=== PATIENT | male | born 1965 | race African-American/Black ===

== ENCOUNTER 2019-03-08 02:49 | Inpatient (IN) | payer OTHER ==
[2019-03-08] VITALS (12 sets, daily range): BP systolic 135–185; BP diastolic 92–109
[~2019-03-08] VITALS: Ht 185.4 cm; Wt 127.0 kg
[2019-03-08] MEDS ORDERED: HYDRAZINE SULFAT1 GM PO (02:59)
[2019-03-08] MEDS ORDERED: HYDROCHLOROTH12.5 M1 PO (02:59)
[2019-03-08] MEDS ORDERED: CARVEDILOL12.5 MG PO (02:59)
[2019-03-08] MEDS ORDERED: ASPIR 8181 MG PO (03:00)
[2019-03-08] MEDS ORDERED: LIPITOR 20 MG T20 M1 PO (03:00)
[2019-03-08] MEDS ORDERED: AMLODIPINE BESY10 MG PO (03:00)
[2019-03-08 03:07] LABS: ABSOLUTE NEUTROPHILS 4.1 thou/uL (1.4-8.2); BASOPHILS 0.9 % (0.0-2.0); HEMATOCRIT 44.7 % (42.0-52.0); MCH 27.4 pg (26.0-34.0); MCHC 33.5 g/dL (28.0-37.0); MCV 81.8 fL (80.0-100.0); MONOCYTES 5.5 % (1.0-8.0); PLATELET COUNT 214 thou/uL (150-400); POLYS 42.6 % (36.0-66.0); RBC 5.47 mil/uL (4.50-6.00); RDW 15.1 % (10.5-14.5); WBC 9.6 thou/uL (4.0-11.0)
[2019-03-08 03:14] LABS: CALCIUM 9.2 mg/dL (8.5-10.1); CREATININE 1.5 mg/dL (0.7-1.3); POTASSIUM 3.3 mmol/L (3.5-5.1)
[2019-03-08 03:23] LABS: ALBUMIN 3.9 g/dL (3.4-5.0); TOTAL BILIRUBIN 0.6 mg/dL (<0.1-1.0); TOTAL PROTEIN 7.5 g/dL (6.4-8.2)
[2019-03-08 03:43] LABS: TROPONIN-I 0.83 ng/mL (<0.06)
[2019-03-08 05:33] LABS: CHOLESTEROL 169 mg/dL (<200); HDL CHOLESTEROL 34 mg/dL (>40); LDL CHOLESTEROL 58 mg/dL (<100); TRIGLYCERIDE 388 mg/dL (<150); VLDL 78 mg/dL (<40)
[2019-03-08 05:39] LABS: SERUM ASSESSMENT Slight Lipemia
--- NOTE | 2019-03-08 09:12 | EKG ---
[place] [address] [facility] [place] [address] ELECTROCARDIOGRAM REPORT Name: JUANIS METZGER Room #: 207-P ADM IN M.R.#: [id number] ������������������ Admission: 03/08/19 ������������������ Attend Phys: Leonides Dumont MD Discharge: ������������������ Date of : 63 Report #: [id number] ����������������������������������������������������������������� [id number] THIS REPORT FOR: //name// [facility] ED Test Date: 2019-03-08 Test Time: 03:00:01 Pat Name: JUANIS METZGER Department: Room: 207 Gender: M Dental Resident: CANDIS : 1965 Requested By: Rosalba Chakraborty Order Number: [id number] MD: Jason Dewey Measurements Intervals [place] Rate: 71 P: 19 TX: 154 QRS: -67 QRSD: 100 T: QT: 386 QTc: 420 Interpretive Statements Sinus rhythm Left anterior fascicular block Nonspecific T abnormalities, lateral leads No previous ECG available for comparison Electronically Signed On 03-08-2019 9:12:29 CDT by Jason Dewey [email or web address] ��������������������������������������������� <ELECTRONICALLY SIGNED> ���������������������������������������� By: Jason Dewey MD, [facility] ��������������������������������������������� 03/08/1912 9 9 Jason Dewey MD, FAC /EPI
--- NOTE | 2019-03-08 16:58 | CATHLAB ---
[facility] [address] [place] [address] INVASIVE PROCEDURE REPORT Name: JUANIS METZGER Room #: 207-P ADM IN ..#: [id number] ������������� Admission: 03/08/19 ������������� Attend Phys: Leonides Dumont MD Discharge: ��� ������������� ��� Date of : 63 Date of Service: 03/08/19 1658 �� Report #: [id number] �������� ��������������������������������������������[id number] THIS REPORT FOR: //name// APPROVED REPORT Study performed: 03/08/2019 11:05:11 Patient Details Patient Status: In-Patient Room #: 207 The patient is a 53 year-old male Event Personnel Gianni Almaraz Visual Stylist, Temo Mcfarlane RN, Carin Mason RTR, ESCROW CLOSER Monitor, Jenniffer SCHAEFFER ESCROW CLOSER Scrub Procedures Performed Art Access - R femoral artery* Left Heart Cath w/or w/o Coronaries 7623856 [facility] [address] Initial Mod Sed Same Phys/QHP Gr5y 953158 Renal Bilateral Peripheral Angiography [id number] CVRENALBIL Hemostasis w/ Mynx Indication Chest pain Procedure Narrative The Right Groin^ was infiltrated with 1% Lidocaine subcutaneous anesthesia. A PINNACLE 6FR Sheath #[id number] sheath was inserted into the RFA^. Coronary angiography was performed using coronary diagnostic catheters. The right coronary system was accessed and visualized with a JR4 catheter. The left coronary system was accessed and visualized with a JL4 catheter. The left ventricle was accessed and visualized with a Pigtail catheter. Left ventriculogram was performed in 30 degree projection. Pre-demployment femoral angiogram was performed . Closure device was deployed with a 6 Fr MYNXGRIP 6/7F #[id number]. There was no hematoma. Intraoperative Conscious Sedation Sedation start time: 12:02 Case end Time: 12:33 Fentanyl 50 mcg Versed 2 mg Fluoro Time: 1.43 minutes Dose: DAP 6580.40 cGycm2 784 mGy Contrast Type and Amount: Visipaque 75 ml [facility] [address] [place] [address] INVASIVE PROCEDURE REPORT Name: JUANIS METZGER Room #: 207-P [facility] IN [facility]#: [id number] ������������� Admission: 03/08/19 ������������� Attend Phys: Leonides Dumont MD Discharge: ��� ������������� ��� Date of : 63 Date of Service: 03/08/19 1658 �� Report #: [id number] �������� ��������������������������������������������[id number] Hemodynamics The aortic pressure is 159/95 mmHg with a mean of 120 mmHg. The left ventricular pressure is 170/10 mmHg with a mean of mmHg. The left ventricular end diastolic pressure is 25 mmHg. Conclusion #1 normal left ventricular size and systolic function EF 55-60% no wall motion abnormality #2 essentially normal coronary anatomy anatomically dominant right codominant larger circumflex smaller right coronary artery no significant occlusive disease is noted LAD extends around the apex. Left main is large and mildly ectatic #3 selective bilateral renal angiography revealing no occlusive renal artery stenosis. Condition plan: Continue aggressive risk factor modification. There is no indication for coronary intervention. We'll have follow-up with echo Doppler for blood pressure for assessing LVH have instituted ARB therapy Mild renal insufficiency will also follow and repeat creatinine at his follow-up in 2-3 weeks. ��������������������������������������������� <ELECTRONICALLY SIGNED> ���������������������������������������� By: Gianni Almaraz MD, [facility] ��������������������������������������������� 03/08/19 1658 57 57 Gianni Almaraz MD, FACC /INF
--- NOTE | 2019-03-08 17:20 | NUR ---
ASSUMED CARE AT 0815 AM, ALERT AND ORIENTED, DENIES ANY CP, BP REMAINS HIGH ON ADMISSION. PATIENT TAKEN CHIEF MARKETING OFFICER, RT GRION DCI, OFF BED REST. POST CARDIAC CATH VS SEE FOLLOW SHEET. DISCHARGE AND MEDICATION INSTRUCTION GIVEN TO PT ANF FAMILY AND PATEINT DISCHARGED HOME.
--- NOTE | 2019-03-09 08:05 | EKG ---
[address] [address] ELECTROCARDIOGRAM REPORT Name: JUANIS METZGER Room #: 207-[facility] IN M.R.#: [id number] ������������������ Admission: 03/08/19 ������������������ Attend Phys: Leonides Dumont MD Discharge: 03/08/19 ������������������ Date of : 63 Report #: [id number] ����������������������������������������������������������������� [id number] THIS REPORT FOR: //name// [facility] Test Date: 2019-03-08 Test Time: 09:24:26 Pat Name: JUANIS METZGER Department: Room: [facility] Gender: M Industrial Radiographer: Teddy HUTCHINSON : 1965 Requested By: Tanvi Campbell Order Number: [id number] MD: Jason Dewey Measurements Intervals [place] Rate: 62 P: 36 AR: 149 QRS: -66 QRSD: 103 T: 211 QT: 398 QTc: 405 Interpretive Statements Sinus rhythm Left anterior fascicular block Nonspecific T abnormalities, diffuse leads Compared to ECG 03/08/2019 03:00:01 no significant change was found Electronically Signed On 03-09-2019 8:05:36 CDT by Jason Dewey [email or web address] ��������������������������������������������� <ELECTRONICALLY SIGNED> ���������������������������������������� By: Jason Dewey MD, [facility] ��������������������������������������������� 03/09/19 0805 Jason Dewey MD, [facility] /EPI
--- NOTE | 2019-03-09 08:35 | NUR ---
PATIENT DC PRIOR TO SEEN.
== END 2019-03-08 17:20 | disposition home or self-care (01) | DRG 281 ==
LOC: ER 02:49 → EROBS 04:26 → 2N 04:26
PROVIDERS: Emergency Medicine; Nurse Practitioner Family; ADMIT Hospitalist
PROC: B418YZZ Fluoroscopy of Bilateral Renal Arteries using Other Contrast (ICD-10-PCS; principal; 2019-03-08)
PROC: B215YZZ Fluoroscopy of Left Heart using Other Contrast (ICD-10-PCS; principal; 2019-03-08)
PROC: B211YZZ Fluoroscopy of Multiple Coronary Arteries using Other Contrast (ICD-10-PCS; principal; 2019-03-08)
PROC: 4A023N7 Measurement of Cardiac Sampling and Pressure, Left Heart, Percutaneous Approach (ICD-10-PCS; principal; 2019-03-08)
PROC: B41JYZZ Fluoroscopy of Other Lower Arteries using Other Contrast (ICD-10-PCS; principal; 2019-03-08)
DX: I21.4 Non-ST elevation (NSTEMI) myocardial infarction (principal); N17.9 Acute kidney failure, unspecified; E78.5 Hyperlipidemia, unspecified; F12.90 Cannabis use, unspecified, uncomplicated; I16.0 Hypertensive urgency; E11.22 Type 2 diabetes mellitus with diabetic chronic kidney disease; E78.1 Pure hyperglyceridemia; I12.9 Hypertensive chronic kidney disease with stage 1 through stage 4 chronic kidney disease, or unspecified chronic kidney disease; N18.9 Chronic kidney disease, unspecified; Z79.82 Long term (current) use of aspirin; Z79.899 Other long term (current) drug therapy; Z83.3 Family history of diabetes mellitus; Z82.49 Family history of ischemic heart disease and other diseases of the circulatory system; Z87.891 Personal history of nicotine dependence; Z71.51 Drug abuse counseling and surveillance of drug abuser
CPT/HCPCS: 10081

== ENCOUNTER → 2019-06-04 | Outpatient (CLI) | payer OTHER ==
[~2019-06-04] MED LIST: AMLODIPINE BESY10 MG PO; ASPIR 8181 MG PO; CARVEDILOL12.5 MG PO; HYDRAZINE SULFAT1 GM PO; HYDROCHLOROTH12.5 M1 PO; LIPITOR 20 MG T20 M1 PO
--- NOTE | 2019-06-12 21:31 | SLE ---
[facility] [place] [address] [place] [address] POLYSOMNOGRAPHY STUDY Name: JUANIS METZGER Room #: REG [facility]#: [id number] Admission: 06/04/19 Attend Phys: Selvin Mccracken MD Discharge: Date of : 63 Report #: [id number] THIS REPORT FOR: //name// CC: Selvin Mccracken FAM unknown Gianni Almaraz MD [facility] DATE OF SERVICE: 06/04/2019 SLEEP STUDY. ATTENDING PHYSICIAN: Dr. Gianni Almaraz. The patient is 53 years old who weighs 287 pounds with a BMI of 37.9. The patient's Killeen score was 6. The patient underwent a sleep study performed at [facility]. During the night study, the patient spent 462 minutes in bed and slept for 344 minutes with a sleep efficiency of 75%. Sleep latency was 72 minutes with a REM latency of 126 minutes. Overall, sleep architecture showed increased stage 1 and stage 2 sleep and reduced N3 sleep and reduced REM sleep, which was 15% of total sleep time. During the night study, the patient had no apneas. The patient had 16 hypopneas. The patient's apnea-hypopnea index for the entire night was 2.8 per hour with a REM index of 4.7 per hour and a supine index of 0 per hour. EKG monitoring revealed an average heart rate of 54 beats per minute. frequent PVCs seen. No sustained arrhythmias observed. No clinically significant PLM seen. Nocturnal oximetry study revealed an average oxygen saturation of 95% with lowest of 86%. Only 0.7 minutes were spent in oxygen saturation of less than 90%. Due to low AHI, the patient did not meet the split night criteria for CPAP initiation. IMPRESSION: 1. No clinically significant sleep disordered breathing. The patient's AHI for the entire night was 2.8 per hour. 2. 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 3. No clinically significant periodic limb movements of sleep. 4. No clinically significant nocturnal hypoxia. [facility] [address] [place] [address] POLYSOMNOGRAPHY STUDY Name: VIVIANESUNI BucioADÁN [facility] [id number] Admission: 06/04/19 Attend Phys: Selvin Mccracken MD Discharge: Date of : 63 Report #: [id number] RECOMMENDATIONS: 1. The patient did not meet the criteria for CPAP initiation. 2. Weight loss is strongly advised. 3. Avoid [employer]OP[employer] depressants. 4. If clinical suspicion for other disorders such as narcolepsy or idiopathic hypersomnia is high, then consider doing multiple sleep latency tests. <ELECTRONICALLY SIGNED> By: Selvin Mccracken MD 06/12/19 2131 1854 24 Selvin Mccracken MD /nt
== END ==
LOC: SLEEPLAB 10:01
DX: G47.9 Sleep disorder, unspecified (principal)

== ENCOUNTER → 2020-08-28 | Outpatient (CLI) | payer OTHER | LOC: SJCVCIMAG 10:03 | PROVIDERS: ATTEND Internal Medicine Cardiovascular Disease | DX: I34.0 Nonrheumatic mitral (valve) insufficiency (principal); I11.9 Hypertensive heart disease without heart failure ==